=== PATIENT | female | born 1960 | race Caucasian/White ===

== ENCOUNTER 2016-10-16 17:21 | Emergency (ER) | payer OTHER ==
[2016-10-16 17:30] VITALS: TEMP 98; BMI 23.0
[2016-10-16] MEDS ORDERED: ASPIRIN 81 MG CHEWABLE TABLETS PO ONE (17:41)
--- NOTE | 2016-10-16 17:41 | PDOC ---
History of Present Illness - General Chief Complaint: Chest Pain Stated Complaint: SENT BY PCP Past History - Past Medical History Allergies/Adverse Reactions: Allergies Allergy/AdvReac Type Severity Reaction Status Date / Time Penicillins Allergy Verified 10/16/16 17:29 Home Medications: Ambulatory Orders Sitagliptin Phos/Metformin HCl [Janumet 50-500 mg Tablet] 1 tab PO BID 06/23/14 Diabetes: Yes - Psycho/Social/Smoking Cessation Hx Anxiety: No Suicidal Ideation: No Smoking Status: Yes Smoking History: Current every day smoker Have you smoked in the past 12 months: Yes Number of Cigarettes Smoked Daily: 10 Information on smoking cessation initiated: No Hx Alcohol Use: No Drug/Substance Use Hx: No Substance Use Type: None *Physical Exam - Vital Signs Last Vital Signs Temp Pulse Resp BP Pulse Ox 98.0 F 92 H 20 122/76 99 10/16/16 17:27 10/16/16 17:27 10/16/16 17:27 10/16/16 17:27 10/16/16 17:27 - Physical Exam General Appearance: Yes: Appropriately Dressed HEENT: positive: Normal Voice Neck: positive: Supple Respiratory/Chest: positive: Lungs Clear Cardiovascular: positive: Regular Rhythm, Regular Rate Gastrointestinal/Abdominal: positive: Soft, Protuberent Musculoskeletal: positive: Normal Inspection Extremity: positive: Normal Inspection, Normal Range of Motion Integumentary: positive: Normal Color, Warm Neurologic: positive: Fully Oriented, Alert, Motor Strength 5/5 ED Treatment Course - LABORATORY CBC & Chemistry Diagram: 10/16/16 18:25 10/16/16 18:25 - ADDITIONAL ORDERS Additional order review: Laboratory Results 10/16/16 10/16/16 18:25 18:25 INR 1.00 Sodium 140 Potassium 4.1 Chloride 106 Carbon Dioxide 23 Anion Gap 11 BUN 16 Creatinine 0.8 D Creat Clearance w eGFR > 60 Random Glucose 121 H Calcium 9.2 Magnesium 2.0 Total Bilirubin 0.2 D AST 14 L ALT 17 Alkaline Phosphatase 73 D Creatine Kinase 86 Troponin I < 0.02 B-Natriuretic Peptide 45.18 Total Protein 7.1 Albumin 4.1 10/16/16 18:25 RBC 4.31 MCV 94.0 MCHC 33.1 RDW 14.1 MPV 10.6 Neutrophils % 61.9 Lymphocytes % 30.3 Monocytes % 5.2 Eosinophils % 1.4 Basophils % 1.2 - RADIOLOGY Radiology Studies Ordered: Category Date Time Status CHEST X-RAY PORTABLE* [RAD] Stat Radiology 10/16/16 17:42 Taken Medical Decision Making - Medical Decision Making 10/16/16 20:01 56-year-old female had been taking CHANTRIX to stop Smoking and had palpitations last week . Her palpitaions stopped as soon as she stopped my medication but for the past few days she had some mild chest tightness She stopped taking the medication about one week ago but has a residual chest tightness. It is because of this chest tightness she came to the emergency department. EKG was normal sinus rhythm with a left atrial enlargement. Compared today's EKG with that of 12/25/2012, and there were no changes -negative cardiac enzymes labs reviewed cxr napd imp- atypical chest pain -follow up w PCP Enzyme was negative *DC/Admit/Observation/Transfer Diagnosis at time of Disposition: Atypical chest pain - Discharge Dispostion Disposition: HOME Condition at time of disposition: Stable - Referrals Referrals: Kendell Garcia MD [Primary Care Provider] - - Patient Instructions Printed Discharge Instructions: DI for Atypical Chest Pain Additional Instructions: please followup with your regular physician
[2016-10-16] MEDS ORDERED: ASPIRIN 81 MG CHEWABLE TABLETS ONE (17:55)
[2016-10-16 18:42] LABS: BASOPHIL 1.2 % (0-2.0); EOSINOPHIL 1.4 % (0-4.5); MCH 31.1 pg (25.7-33.7); MCHC 33.1 g/dl (32.0-36.0); MEAN PLT VOLUME 10.6 fl (7.5-11.1); NEUTROPHILS 61.9 % (42.8-82.8); PLATELET COUNT 213 K/MM3 (134-434); RDW 14.1 % (11.6-15.6); WHITE BLOOD COUNT 10.9 K/mm3 (4.0-10.0)
--- NOTE | 2016-10-16 19:00 | PDOC ---
History of Present Illness - General Chief Complaint: Chest Pain Stated Complaint: SENT BY PCP Time Seen by Provider: 10/16/16 17:46 History Source: Patient Exam Limitations: No Limitations - History of Present Illness Initial Comments: 10/16/16 18:59 56F with pmh of DM2 on Janumet (FS: 115 2 days ago) present after starting Varenidine treatment 2 weeks ago associated with episodes of palpitations 1 week later after which she stopped taking the drug. Palpitations disappeared but she still complains of some chest tightness. EKG, TYrops negaytive. Just waitng on chemistry to d/c Patient signed out to Dr. Roney Corea. 10/16/16 19:11 Past History - Past Medical History Allergies/Adverse Reactions: Allergies Allergy/AdvReac Type Severity Reaction Status Date / Time Penicillins Allergy Verified 10/16/16 17:29 Home Medications: Ambulatory Orders Sitagliptin Phos/Metformin HCl [Janumet 50-500 mg Tablet] 1 tab PO BID 06/23/14 Diabetes: Yes - Psycho/Social/Smoking Cessation Hx Anxiety: No Suicidal Ideation: No Smoking Status: Yes Smoking History: Current every day smoker Have you smoked in the past 12 months: Yes Number of Cigarettes Smoked Daily: 10 Information on smoking cessation initiated: No Hx Alcohol Use: No Drug/Substance Use Hx: No Substance Use Type: None Review of Systems - Review of Systems Constitutional: No: Symptoms Reported HEENTM: No: Symptoms Reported Respiratory: No: Symptoms reported Cardiac (ROS): Yes: See HPI ABD/GI: No: Symptoms Reported : No: Symptoms Reported Musculoskeletal: No: Symptoms Reported Integumentary: No: Symptoms Reported Neurological: No: Symptoms reported *Physical Exam - Vital Signs Last Vital Signs Temp Pulse Resp BP Pulse Ox 98.0 F 92 H 20 122/76 99 10/16/16 17:27 10/16/16 17:27 10/16/16 17:27 10/16/16 17:27 10/16/16 17:27 - Physical Exam General Appearance: Yes: Nourished, Appropriately Dressed. No: Apparent Distress HEENT: positive: EOMI, ARISTIDES Neck: positive: Trachea midline, Normal Thyroid. negative: Tender Respiratory/Chest: positive: Lungs Clear, Normal Breath Sounds. negative: Chest Tender, Respiratory Distress Cardiovascular: positive: Regular Rhythm, Regular Rate, S1, S2 Gastrointestinal/Abdominal: positive: Normal Bowel Sounds, Flat, Soft. 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
[2016-10-16 19:06] LABS: ALBUMIN 4.1 g/dl (3.4-5.0); ANION GAP 11 (8-16); BILIRUBIN,TOTAL 0.2 mg/dL (0.2-1.0); CALCIUM 9.2 mg/dL (8.5-10.1); CO2 23 mmol/L (21-32); CREATININE 0.8 mg/dL (0.55-1.02); GLUCOSE,RANDOM 121 mg/dL (74-106); SGOT/AST 14 U/L (15-37); SGPT/ALT 17 U/L (12-78); TOT PROT 7.1 g/dl (6.4-8.2)
[2016-10-16 19:09] LABS: ALK PHOS 73 U/L (45-117); CPK 86 IU/L (26-192); TROPONIN I < 0.02 ng/ml (0.00-0.05)
--- NOTE | 2016-10-16 20:04 | PDOC ---
*Physical Exam - Vital Signs Last Vital Signs Temp Pulse Resp BP Pulse Ox 98.0 F 92 H 20 122/76 99 10/16/16 17:27 10/16/16 17:27 10/16/16 17:27 10/16/16 17:27 10/16/16 17:27 - Physical Exam Comments: 10/16/16 20:02 GENERAL: Awake, alert, and fully oriented, in no acute distress HEAD: No signs of trauma, normocephalic, atraumatic EYES: PEOMI, sclera anicteric, conjunctiva clear ENT: Auricles normal inspection, hearing grossly normal, nares patent, Moist mucosa LUNGS: No distress, speaks full sentences, clear to auscultation bilaterally HEART: Regular rate and rhythm, normal S1 and S2, no murmurs, rubs or gallops, peripheral pulses normal and equal bilaterally. ABDOMEN: Soft, nontender, normoactive bowel sounds. No guarding, no rebound. No masses EXTREMITIES: Normal inspection, Normal range of motion, no edema. No clubbing or cyanosis. NEUROLOGICAL: Cranial nerves II through XII grossly intact. Normal speech, no focal sensorimotor deficits SKIN: Warm, Dry, normal turgor, no rashes or lesions noted. ED Treatment Course - LABORATORY CBC & Chemistry Diagram: 10/16/16 18:25 10/16/16 18:25 - ADDITIONAL ORDERS Additional order review: Laboratory Results 10/16/16 10/16/16 18:25 18:25 INR 1.00 Sodium 140 Potassium 4.1 Chloride 106 Carbon Dioxide 23 Anion Gap 11 BUN 16 Creatinine 0.8 D Creat Clearance w eGFR > 60 Random Glucose 121 H Calcium 9.2 Magnesium 2.0 Total Bilirubin 0.2 D AST 14 L ALT 17 Alkaline Phosphatase 73 D Creatine Kinase 86 Troponin I < 0.02 B-Natriuretic Peptide 45.18 Total Protein 7.1 Albumin 4.1 10/16/16 18:25 RBC 4.31 MCV 94.0 MCHC 33.1 RDW 14.1 MPV 10.6 Neutrophils % 61.9 Lymphocytes % 30.3 Monocytes % 5.2 Eosinophils % 1.4 Basophils % 1.2 Medical Decision Making - Medical Decision Making 10/16/16 20:[address] Elizabeth. Vital signs normal and stable. Chemistry normal. HEART score of 1. Directed patient to arrange follow up with PCP Dr Garcia early this week. *DC/Admit/Observation/Transfer Diagnosis at time of Disposition: Atypical chest pain - Discharge Dispostion Disposition: HOME Condition at time of disposition: Good Admit: No - Referrals Referrals: Kendell Garcia MD [Primary Care Provider] - - Patient Instructions Printed Discharge Instructions: DI for Atypical Chest Pain - Post Discharge Activity - Attestations Physician Attestion: I, Dr. Roney Corea, attest that this document has been prepared under my direction and personally reviewed by me in its entirety. I further attest, that it accurately reflects all work, treatment, procedures and medical decision -making performed by me.
[2016-10-16 20:54] VITALS: BP 123/69; PULSE 78
--- NOTE | 2016-10-17 12:15 | EKG ---
Test Reason : Blood Pressure : / mmHG Vent. Rate : 095 BPM Atrial Rate : 095 BPM P-R Int : 152 ms QRS Dur : 078 ms QT Int : 372 ms P-R-T Axes : 065 043 058 degrees QTc Int : 467 ms NORMAL SINUS RHYTHM POSSIBLE LEFT ATRIAL ENLARGEMENT LOW VOLTAGE QRS BORDERLINE ECG WHEN COMPARED WITH ECG OF 25-DEC-2012 17:01, NO SIGNIFICANT CHANGE WAS FOUND Confirmed by ALLY PEREIRA MD ([id number]) on 10/17/2016 12:15:03 PM Referred By: Confirmed By:ALLY PEREIRA MD
== END 2016-10-16 20:40 | disposition home or self-care (01) ==
LOC: JER 17:21
DX: R07.89 Other chest pain (principal); E11.9 Type 2 diabetes mellitus without complications; Z79.84 Long term (current) use of oral hypoglycemic drugs
CPT/HCPCS: 36415; 71010-TC; 80053; 83735; 83880; 84484; 85025; 85610; 93005; 93010; 99283-25

== ENCOUNTER 2017-04-18 06:51 | Emergency (ER) | payer OTHER ==
[2017-04-18 07:13] VITALS: BP 110/73; PULSE 84; TEMP 97.7; BMI 22.4
[2017-04-18] MEDS ORDERED: METOCLOPRAMIDE HCL INJECTION 10 MG/2 ML VIAL IVPUSH ONE (08:04)
[2017-04-18] MEDS ORDERED: SODIUM CHLORIDE 0.9% 500 ML INFUS.BAG IV ONE (08:04)
[2017-04-18] MEDS ORDERED: ACETAMINOPHEN 500 MG TABLET (FP) PO ONE (08:05)
[2017-04-18] MEDS ORDERED: ACETAMINOPHEN 325 MG TABLET (FP) ONE (08:17)
[2017-04-18] MEDS ORDERED: METOCLOPRAMIDE HCL INJECTION 10 MG/2 ML VIAL ONE (08:17)
[2017-04-18 08:53] LABS: BASO % 0.2 % (0-2.0); EOS % 1.5 % (0-4.5); HEMATOCRIT 41.6 % (32.4-45.2); HEMOGLOBIN 13.3 GM/dL (10.7-15.3); LYMPH % 5.2 % (8-40); MCH 30.4 pg (25.7-33.7); MEAN CELL VOLUME 94.8 fl (80-96); MEAN PLT VOLUME 9.7 fl (7.5-11.1); MONO % 3.8 % (3.8-10.2); NEUT % 89.3 % (42.8-82.8); PLATELET COUNT 202 K/MM3 (134-434); RBC 4.39 M/mm3 (3.60-5.2); RDW 13.8 % (11.6-15.6); WHITE BLOOD COUNT 16.5 K/mm3 (4.0-10.0)
--- NOTE | 2017-04-18 08:54 | PDOC ---
History of Present Illness - General History Source: Patient Exam Limitations: No Limitations - History of Present Illness Initial Comments: 04/18/17 10:06 The patient is a 56 year old female with a significant PMH of non-insulin dependent diabetes and hyperlipidemia who presents to the emergency department with flu-like symptoms including 2 days of sore throat and 1 day of headache, body aches, mild non productive cough and nausea. The patient also notes having feeling shortness of breath secondary to her nasal congestion over the past 2 days. She reports her grandson who lives with her has been sick with bronchitis recently. She reports receiving the flu shot this year. She denies any recent travel. The patient denies chest pain and dizziness. Denies fever, chills, vomit, diarrhea and constipation. Denies dysuria, frequency, urgency and hematuria. Allergies: Penicillins Past surgical history: None reported. Social history: Current everyday smoker (5-10 cigs/day). No reported alcohol or drug use. PCP: Dr. Reese <Jacques Sam - Last Filed: 04/18/17 10:07> <Sylwia Isaac - Last Filed: 04/18/17 10:53> - General Chief Complaint: Headache Stated Complaint: HEADACHE Time Seen by Provider: 04/18/17 07:22 Past History <Jacques Sam - Last Filed: 04/18/17 10:07> - Past Medical History COPD: No DVT: No Diabetes: Yes (NIDM) Hypercholesterolemia: Yes - Immunization History Immunization Up to Date: Yes - Suicide/Smoking/Psychosocial Hx Smoking Status: Yes Smoking History: Current every day smoker Have you smoked in the past 12 months: Yes Number of Cigarettes Smoked Daily: 10 Information on smoking cessation initiated: No Hx Alcohol Use: No Drug/Substance Use Hx: No Substance Use Type: None <Sylwia Isaac - Last Filed: 04/18/17 10:53> - Past Medical History Allergies/Adverse Reactions: Allergies Allergy/AdvReac Type Severity Reaction Status Date / Time Penicillins Allergy Verified 04/18/17 07:09 Home Medications: Ambulatory Orders Sitagliptin Phos/Metformin HCl [Janumet 50-500 mg Tablet] 1 tab PO BID 06/23/14 Dapagliflozin Propanediol [Farxiga] 1 tab PO DAILY 03/10/17 Multivitamin [Daily Multiple Vitamin] 1 tab PO DAILY 03/10/17 Rosuvastatin Calcium [Crestor] 1 tab PO DAILY 03/10/17 Review of Systems - Review of Systems Able to Perform ROS?: Yes Comments:: 04/18/17 10:06 GENERAL/CONSTITUTIONAL: (+) Body aches. No fever or chills. No weakness. HEAD, EYES, EARS, NOSE AND THROAT: (+) Sore throat. No change in vision. No ear pain or discharge GASTROINTESTINAL: (+) Nausea. No vomiting, diarrhea or constipation. GENITOURINARY: No dysuria, frequency, or change in urination. CARDIOVASCULAR: No chest pain or shortness of breath. RESPIRATORY: No cough, wheezing, or hemoptysis. MUSCULOSKELETAL: No joint pain. No neck or back pain. SKIN: No rash NEUROLOGIC: (+) Headache. No vertigo, loss of consciousness, or change in strength/sensation. ENDOCRINE: No increased thirst. No abnormal weight change. HEMATOLOGIC/LYMPHATIC: No anemia, easy bleeding, or history of blood clots. ALLERGIC/IMMUNOLOGIC: No hives or skin allergy. <Jacques Sam - Last Filed: 04/18/17 10:07> *Physical Exam - Vital Signs Last Vital Signs Temp Pulse Resp BP Pulse Ox 97.7 F 84 18 110/73 98 04/18/17 07:10 04/18/17 07:10 04/18/17 07:10 04/18/17 07:10 04/18/17 07:10 - Physical Exam Comments: 04/18/17 10:06 GENERAL: Awake, alert, and fully oriented, in no acute distress HEAD: No signs of trauma EYES: PERRLA, EOMI, sclera anicteric, conjunctiva clear ENT: Auricles normal inspection, hearing grossly normal, nares patent, oropharynx clear without exudates, no erythema, no tonsillar edema. dry MM NECK: Normal ROM, supple, no lymphadenopathy, JVD, or masses LUNGS: Breath sounds equal, clear to auscultation bilaterally. No wheezes, and no crackles HEART: Regular rate and rhythm, normal S1 and S2, no murmurs, rubs or gallops ABDOMEN: Soft, nontender, normoactive bowel sounds. No guarding, no rebound. No masses EXTREMITIES: Normal range of motion, no edema. No clubbing or cyanosis. No cords , erythema, or tenderness BACK: No midline spinal tenderness in cervical/thoracic/lumbar region NEUROLOGICAL: Normal speech, cranial nerves intact, negative pronator drift, 5/ 5 strength in all 4 extremities, normal sensation to light touch in all 4 extremities, normal cerebellar exam, normal gait, normal reflexes and tone SKIN: Warm, Dry, normal turgor, no rashes or lesions noted. <Jacques Sam - Last Filed: 04/18/17 10:07> - Vital Signs Last Vital Signs Temp Pulse Resp BP Pulse Ox 97.7 F 84 18 110/73 98 04/18/17 07:10 04/18/17 07:10 04/18/17 07:10 04/18/17 07:10 04/18/17 07:10 <Sylwia Isaac - Last Filed: 04/18/17 10:53> ED Treatment Course - LABORATORY CBC & Chemistry Diagram: 04/18/17 08:45 04/18/17 08:45 - ADDITIONAL ORDERS Additional order review: Laboratory Results 04/18/17 08:45 Sodium 140 Potassium 4.6 Chloride 108 H Carbon Dioxide 25 Anion Gap 7 L BUN 15 Creatinine 0.7 Creat Clearance w eGFR > 60 Random Glucose 137 H Calcium 8.6 Total Bilirubin 0.6 D AST 19 ALT 22 Alkaline Phosphatase 75 Total Protein 7.1 Albumin 4.1 04/18/17 08:32 Influenza Types A,B Antigen (VIRIDIANA) - Final Nasopharyngeal Swab - Final 04/18/17 08:45 RBC 4.39 MCV 94.8 MCHC 32.0 RDW 13.8 MPV 9.7 Neutrophils % 89.3 H D Lymphocytes % 5.2 L D Monocytes % 3.8 Eosinophils % 1.5 Basophils % 0.2 - Medications Given in the ED: ED Medications Discontinued Medications Generic Name Dose Route Start Last Admin Trade Name Freq PRN Reason Stop Dose Admin Acetaminophen 1,000 mg 04/18/17 08:05 04/18/17 08:31 Tylenol - PO 04/18/17 08:06 1,000 mg ONCE ONE Administration Ketorolac Tromethamine 15 mg 04/18/17 09:54 04/18/17 10:01 Toradol Injection - IVPUSH 04/18/17 09:55 15 mg ONCE ONE Administration Metoclopramide HCl 10 mg 04/18/17 08:04 04/18/17 08:31 Reglan Injection - IVPUSH 04/18/17 08:05 10 mg ONCE ONE Administration Sodium Chloride 1,000 ml 04/18/17 08:04 04/18/17 08:31 Normal Saline - IV 04/18/17 08:05 1,000 ml ONCE ONE Administration <Jacques Sam - Last Filed: 04/18/17 10:07> - LABORATORY CBC & Chemistry Diagram: 04/18/17 08:45 04/18/17 08:45 - RADIOLOGY Radiology Studies Ordered: Category Date Time Status CHEST X-RAY PORTABLE* [RAD] Stat Radiology 04/18/17 08:03 Ordered - Medications Given in the ED: ED Medications Discontinued Medications Generic Name Dose Route Start Last Admin Trade Name Jonh PRN Reason Stop Dose Admin Acetaminophen 1,000 mg 04/18/17 08:05 04/18/17 08:31 Tylenol - PO 04/18/17 08:06 1,000 mg ONCE ONE Administration Metoclopramide HCl 10 mg 04/18/17 08:04 04/18/17 08:31 Reglan Injection - IVPUSH 04/18/17 08:05 10 mg ONCE ONE Administration Sodium Chloride 1,000 ml 04/18/17 08:04 04/18/17 08:31 Normal Saline - IV 04/18/17 08:05 1,000 ml ONCE ONE Administration <Sylwia Isaac - Last Filed: 04/18/17 10:53> Medical Decision Making - Medical Decision Making 04/18/17 10:00 56-year-old female presents with 2 days headache, sore throat, cough, nasal congestion, gradual onset headache and diffuse body aches. Vitals unremarkable. Exam remarkable only for slightly dry mucous membranes. Likely viral syndrome, will obtain basic labs, x-ray to rule out infiltrate, and urinalysis as well as flu swab and reassess. 04/18/17 10:42 Labs remarkable for leukocytosis to 16. Chest x-ray is clear,. Flu swab negative , and urinalysis with unlikely UTI. White count possibly due to viral syndrome. Discussed with patient, and advised her to follow-up with Dr. Reese within 1-2 days and return to the emergency Department if she has any new, worsening or concerning symptoms. She expresses understanding. Vitals remain stable. I discussed the physical exam findings, ancillary test results and final diagnoses with the patient. I answered all of the patient's questions. The patient was satisfied with the care received and felt comfortable with the discharge plan and treatment plan. The patient will call their primary care physician within 24 hours to arrange follow-up and will return to the Emergency Department with any new, persistent or worsening symptoms. <Sylwia Isaac - Last Filed: 04/18/17 10:53> *DC/Admit/Observation/Transfer - Attestations Scribe Attestion: 04/18/17 10:07 Documentation prepared by Jacques Sam, acting as medical supervisor for Sylwia Isaac MD. <Jacques Sam - Last Filed: 04/18/17 10:07> - Discharge Dispostion Admit: No - Attestations Physician Attestion: 04/18/17 10:42 I, Dr. Sylwia Isaac MD, attest that this document has been prepared under my direction and personally reviewed by me in its entirety. I further attest, that it accurately reflects all work, treatment, procedures and medical decision -making performed by me. <Sylwia Isaac - Last Filed: 04/18/17 10:53> Diagnosis at time of Disposition: Viral syndrome - Discharge Dispostion Disposition: HOME Condition at time of disposition: Stable - Referrals Referrals: Demarcus Reese MD [Primary Care Provider] - - Patient Instructions Printed Discharge Instructions: DI for Viral Syndrome Additional Instructions: Follow-up with Dr. Reese within 1-2 days. Drink plenty of fluids and stay hydrated. Take ibuprofen as needed for body aches. Return to the emergency department if you have any new, worsening or concerning symptoms. - Post Discharge Activity Forms/Work/School Notes: Back to Work
[2017-04-18 09:17] LABS: ALBUMIN 4.1 g/dl (3.4-5.0); ANION GAP 7 (8-16); BLOOD UREA NITROGEN 15 mg/dL (7-18); CALCIUM 8.6 mg/dL (8.5-10.1); CHLORIDE 108 mmol/L (98-107); CO2 25 mmol/L (21-32); CREATININE 0.7 mg/dL (0.55-1.02); GLUCOSE,RANDOM 137 mg/dL (74-106); SGPT/ALT 22 U/L (12-78); SODIUM 140 mmol/L (136-145)
[2017-04-18 09:19] LABS: ALK PHOS 75 U/L (45-117); BILIRUBIN,TOTAL 0.6 mg/dL (0.2-1.0); TOT PROT 7.1 g/dl (6.4-8.2)
[2017-04-18 09:41] LABS: POTASSIUM 4.6 mmol/L (3.5-5.1); SGOT/AST 19 U/L (15-37)
[2017-04-18] MEDS ORDERED: KETOROLAC TROMETHAMINE 15 MG/ML VIAL IVPUSH ONE (09:54)
[2017-04-18] MEDS ORDERED: KETOROLAC TROMETHAMINE 15 MG/ML VIAL ONE (09:58)
[2017-04-18 10:11] LABS: URINE APPEARANCE CLEAR; URINE BILIRUBIN NEGATIVE (NEGATIVE); URINE BLOOD NEGATIVE (NEGATIVE); URINE COLOR STRAW; URINE GLUCOSE (UA) 3+ (NEGATIVE); URINE KETONE NEGATIVE (NEGATIVE); URINE NITRITE NEGATIVE (NEGATIVE); URINE PROTEIN NEGATIVE (NEGATIVE); URINE UROBILINOGEN NEGATIVE mg/dL (0.2-1.0)
[2017-04-18 10:16] LABS: URINE LEUK ESTERASE 1+ (NEGATIVE)
[2017-04-18 10:20] LABS: EPI CELLS FEW /HPF (FEW)
== END 2017-04-18 11:04 | disposition home or self-care (01) ==
LOC: JER 06:51
PROC: 3E0333Z Introduction of Anti-inflammatory into Peripheral Vein, Percutaneous Approach (ICD-10-PCS; principal; 2017-04-18)
PROC: 3E033GC Introduction of Other Therapeutic Substance into Peripheral Vein, Percutaneous Approach (ICD-10-PCS; 2017-04-18)
DX: B34.9 Viral infection, unspecified (principal)
CPT/HCPCS: 36415; 71045-TC; 80053; 81003; 81015; 85025; 87086; 87804; 99283-25

== ENCOUNTER 2017-05-04 05:14 | Day surgery (SDC) | payer OTHER ==
[2017-05-02 09:19] VITALS: BMI 22.4
[2017-05-04] MEDS ORDERED: LIDOCAINE HCL 1%, 10 MG/ML (20ML VIAL) ONE (13:39)
[2017-05-04] MEDS ORDERED: HEPARIN NA (PORCINE) 5,000 UNITS/ML 1ML VIAL ONE ×2 (13:39→14:45)
--- NOTE | 2017-05-04 14:06 | HP ---
Admitting History and Physical - Admission Chief Complaint: Right lower ext claudication Limitations to Obtaining History: No Limitations - Past Medical History Cardiovascular: Yes: Hyperlipdemia Pulmonary: Yes: Other (Smoker) ...LMP Comment: 2013 Endocrine: Yes: Diabetes Mellitus - Smoking History Smoking history: Current every day smoker Have you smoked in the past 12 months: Yes Aproximately how many cigarettes per day: 5 - Alcohol/Substance Use Hx Alcohol Use: No Home Medications - Allergies Allergies/Adverse Reactions: Allergies Allergy/AdvReac Type Severity Reaction Status Date / Time Penicillins Allergy Severe Hives Verified 05/02/17 09:07 - Home Medications Home Medications: Ambulatory Orders Sitagliptin Phos/Metformin HCl [Janumet 50-500 mg Tablet] 1 tab PO BID 06/23/14 Dapagliflozin Propanediol [Farxiga] 1 tab PO DAILY 03/10/17 Multivitamin [Daily Multiple Vitamin] 1 tab PO DAILY 03/10/17 Rosuvastatin Calcium [Crestor] 1 tab PO DAILY 03/10/17 Aspirin [Ecotrin] 81 mg PO DAILY 05/02/17 Zolpidem Tartrate [Ambien] 5 mg PO HS PRN 05/02/17 Review of Systems - Review of Systems Constitutional: reports: No Symptoms Eyes: reports: No Symptoms HENT: reports: No Symptoms Neck: reports: No Symptoms Cardiovascular: reports: No Symptoms Respiratory: reports: No Symptoms Gastrointestinal: reports: No Symptoms Genitourinary: reports: No Symptoms Breasts: reports: No Symptoms Reported Musculoskeletal: reports: No Symptoms Integumentary: reports: No Symptoms Neurological: reports: No Symptoms Endocrine: reports: No Symptoms Hematology/Lymphatic: reports: No Symptoms Psychiatric: reports: No Symptoms Physical Examination Vital Signs: Vital Signs Temperature 97.5 F L 05/04/17 12:39 Pulse Rate 86 05/04/17 12:39 Respiratory Rate 16 05/04/17 12:39 Blood Pressure 121/69 05/04/17 12:39 O2 Sat by Pulse Oximetry (%) 100 05/04/17 12:39 Constitutional: Yes: Well Nourished, No Distress, Calm Eyes: Yes: WNL, Conjunctiva Clear, EOM Intact HENT: Yes: WNL, Atraumatic, Normocephalic Neck: Yes: WNL, Supple, Trachea Midline Cardiovascular: Yes: WNL, Regular Rate and Rhythm Respiratory: Yes: WNL, Regular, CTA Bilaterally Gastrointestinal: Yes: WNL, Normal Bowel Sounds Musculoskeletal: Yes: WNL Extremities: Yes: WNL Edema: No Integumentary: Yes: WNL Neurological: Yes: WNL, Alert, Oriented ...Motor Strength: WNL Psychiatric: Yes: WNL Problem List - Problems (1) Claudication of both lower extremities Code(s): I73.9 - PERIPHERAL VASCULAR DISEASE, UNSPECIFIED Assessment/Plan RLE claudication 1. For angiogram today
[2017-05-04] MEDS ORDERED: MIDAZOLAM HCL 2 MG/2 ML SINGLE DOSE VIAL ONE ×2 (14:19)
[2017-05-04] MEDS ORDERED: ceFAZolin SODIUM 1 GM VIAL IVPB ONE (14:25)
[2017-05-04] MEDS ORDERED: PROPOFOL 20 ML ONE (14:35)
[2017-05-04] MEDS ORDERED: LIDOCAINE HCL 1%, 10 MG/ML (20ML VIAL) PNB ONE (14:40)
--- NOTE | 2017-05-04 15:29 | OP ---
Operative Note - Note: Operative Date: 05/04/17 Pre-Operative Diagnosis: Right lower ext claudication Operation: Aortogram, RLE angiogram, SFA DCB angioplasty Post-Operative Diagnosis: Same as Pre-op Surgeon: Mat Omer Anesthesia: Fractional Estimated Blood Loss (mls): 50 Operative Report Dictated: Yes
[2017-05-04] MEDS ORDERED: CLOPIDOGREL BISULFATE 75 MG TABLET (FP) PO ONE (15:45)
[2017-05-04] MEDS ORDERED: ONDANSETRON 4 MG/2 ML VIAL IVPUSH PRN (16:05)
[2017-05-04] MEDS ORDERED: oxyCODONE HCL 5 MG TABLET PO PRN (16:05)
[2017-05-04] MEDS ORDERED: LACTATED RINGERS SOLUTION 1,000 ML IV SCH (16:15)
[2017-05-04] MEDS ORDERED: CLOPIDOGREL BISULFATE 75 MG TABLET (FP) ONE (16:25)
[2017-05-04 16:28] VITALS: TEMP 98.6
[2017-05-04 18:16] VITALS: BP 141/72; PULSE 75
--- NOTE | 2017-05-05 10:48 | OP ---
DATE OF OPERATION: 05/04/2017 PREOPERATIVE DIAGNOSIS: Right lower extremity claudication. POSTOPERATIVE DIAGNOSIS: Right lower extremity claudication. PROCEDURE: Aortogram, right lower extremity angiogram, right superficial femoral artery atherectomy with superficial femoral artery drug-coated balloon angioplasty. SURGEON: Mat Munroe MD ANESTHESIA: Fractional. BLOOD LOSS: 50 mL. INDICATIONS: Rebecca Gustafson is a 56-year-old female who complains of less than 2-block claudication, and she came into our office with those symptoms. Preoperatively, under ultrasound, AIMEE and PVR were performed, showing that she has a distal SFA stenosis/occlusion, and she needs angiogram. Patient had medical clearance performed by Dr. Reese and came into ambulatory surgery. Patient was consented for the procedure understanding all risks, benefits, and alternatives and taken to the operating room. PROCEDURE IN DETAIL: Once in the operating room, she was laid down on the operating table in the supine manner, and the area of the left and right groin was prepped and draped in the sterile surgical manner. We then went injected 10 mL of lidocaine 1% in the left groin, and using our micropuncture needle, we punctured the left common femoral artery. A micropuncture wire inserted. Micropuncture sheath was inserted, and a traditional 5-Angolan sheath was inserted. We then placed a 0.035 floppy guidewire up into the aorta followed by an Omni Flush catheter. We then shot an angiogram by hand injection showing that the aorta and the iliac arteries were without any disease, yet narrow. We then went ahead and placed a 0.035 floppy guidewire up and over to the right common femoral artery and our Omni Flush catheter followed. We then went ahead and shot an angiogram of the right lower extremity showing that the common femoral artery, the profunda, and the proximal SFA were patent. The mid to distal SFA had multiple areas of disease about 80% to 90%, and the distal SFA and the adductor canal was occluded for about 5 cm. Popliteal artery was patent, and patient had 2-vessel runoff into the foot. At this point, we placed a 0.035 stiff guidewire into the SFA, removed our Omni Flush catheter, and placed our 6 x 45 crossover sheath, 5000 units of IV heparin were administered to the patient. We then went ahead and used a Quick-Cross catheter, and we selectively crossed through all our lesions and placed a wire into the anterior tibial artery. We then exchanged the wire for a FiberWire. We then went ahead and performed a CSI Orbital Atherectomy in the area with 2 passes on low and medium. We then went ahead and used a 5 x 150 Lutonix drug-coated balloon and performed angioplasty of the area. The balloon was kept up for 3 minutes, so, that the drug, paclitaxel, could be disseminated into the arterial wall. Once completed, we shot an angiogram showing that the SFA was now patent, there were no areas of dissection, and there was good brisk flow into the foot. At this point, we decided that was needed, we brought our sheath up and over, and StarClose device was successfully deployed in the left common femoral artery. Pressure was held for 5 minutes. After this, there was no more bleeding. The area was wet and dried, and Dermabond was placed. The patient tolerated the procedure with no complications. Patient transferred to PACU in stable condition. We explained to the patient postoperatively that she has to keep her diabetes in control, but one of the biggest things she has to do is stop smoking, because if she continues to smoke, all of the disease will come back, and her arteries will close. She said that she would try to cut down her smoking. MAT MUNROE DO [id number]
== END 2017-05-04 18:00 | disposition home or self-care (01) ==
LOC: JASU-SURG 05:14
PROVIDERS: ATTEND Surgery Vascular Surgery
PROC: 047K3Z1 Dilation of Right Femoral Artery using Drug-Coated Balloon, Percutaneous Approach (ICD-10-PCS; principal; 2017-05-04 12:15)
DX: I70.211 Atherosclerosis of native arteries of extremities with intermittent claudication, right leg (principal); E11.9 Type 2 diabetes mellitus without complications; Z72.0 Tobacco use; I10 Essential (primary) hypertension
CPT/HCPCS: 37224; C2623; 82962; 94760; J1644

== ENCOUNTER 2017-05-04 22:31 | Emergency (ER) | payer OTHER ==
[2017-05-04 22:53] VITALS: BP 112/68; PULSE 86; TEMP 98; BMI 23.2
--- NOTE | 2017-05-05 00:08 | PDOC ---
History of Present Illness - General Chief Complaint: Pain Stated Complaint: POST OP PAIN/BLEEDING Time Seen by Provider: 05/04/17 23:55 History Source: Patient Exam Limitations: No Limitations - History of Present Illness Initial Comments: 05/05/17 01:07 56F with pmf of dm2 and claudication s/p angioplasty yesterday by Dr. Omer. Patient came to the ED report dried blood around the site of the angioplasty which was closed with Dermabond. Denies pain, nausea, vomiting, fever. She states that she has to climb stairs to get to her apartment and the bleed may have happened there. 05/05/17 01:11 Past History - Past Medical History Allergies/Adverse Reactions: Allergies Allergy/AdvReac Type Severity Reaction Status Date / Time Penicillins Allergy Severe Hives Verified 05/02/17 09:07 Home Medications: Ambulatory Orders Sitagliptin Phos/Metformin HCl [Janumet 50-500 mg Tablet] 1 tab PO BID 06/23/14 Dapagliflozin Propanediol [Farxiga] 1 tab PO DAILY 03/10/17 Multivitamin [Daily Multiple Vitamin] 1 tab PO DAILY 03/10/17 Rosuvastatin Calcium [Crestor] 1 tab PO DAILY 03/10/17 Aspirin [Ecotrin] 81 mg PO DAILY 05/02/17 Zolpidem Tartrate [Ambien] 5 mg PO HS PRN 05/02/17 Clopidogrel Bisulfate [Plavix] 75 mg PO DAILY #30 tablet 05/04/17 Anemia: No Asthma: No Cancer: No Cardiac Disorders: No CVA: No COPD: No CHF: No DVT: No Dementia: No Diabetes: Yes (NIDM) GI Disorders: No Disorders: No HTN: No Hypercholesterolemia: Yes Liver Disease: No Seizures: No Thyroid Disease: No - Surgical History Abdominal Surgery: No Appendectomy: No Cardiac Surgery: No Cholecystectomy: No Lung Surgery: No Orthopedic Surgery: No - Immunization History Immunization Up to Date: Yes - Suicide/Smoking/Psychosocial Hx Smoking Status: Yes Smoking History: Current every day smoker Have you smoked in the past 12 months: Yes Number of Cigarettes Smoked Daily: 5 Information on smoking cessation initiated: No 'Breaking Loose' booklet given: 05/02/17 Hx Alcohol Use: No Drug/Substance Use Hx: No Substance Use Type: None Hx Substance Use Treatment: No Review of Systems - Review of Systems Able to Perform ROS?: Yes Is the patient limited Czech proficient: No Constitutional: No: Symptoms Reported HEENTM: No: Symptoms Reported Respiratory: No: Symptoms reported Cardiac (ROS): No: Symptoms Reported ABD/GI: No: Symptoms Reported : No: Symptoms Reported Musculoskeletal: No: Symptoms Reported Integumentary: Yes: See HPI Neurological: No: Symptoms reported All Other Systems: Reviewed and Negative *Physical Exam - Vital Signs Last Vital Signs Temp Pulse Resp BP Pulse Ox 98.0 F 86 16 112/68 100 05/04/17 22:51 05/04/17 22:51 05/04/17 22:51 05/04/17 22:51 05/04/17 22:51 - Physical Exam General Appearance: Yes: Nourished, Appropriately Dressed HEENT: positive: EOMI, ARISTIDES Neck: negative: Tender Respiratory/Chest: positive: Lungs Clear, Normal Breath Sounds. negative: Chest Tender, Respiratory Distress Cardiovascular: positive: Regular Rhythm, Regular Rate, S1, S2 Gastrointestinal/Abdominal: positive: Normal Bowel Sounds, Flat, Soft. negative : Tender Musculoskeletal: positive: Normal Inspection Extremity: positive: Normal Capillary Refill Integumentary: positive: Normal Color, Dry, Warm, Other (surgery site at right groin area intact with some dried blood, no erythema, purulence, induration. Dermabond still holding. ) Neurologic: positive: Fully Oriented, Alert, Normal Mood/Affect, Normal Response Medical Decision Making - Medical Decision Making 05/05/17 01:15 Site not appearing to be actively bleeding, no sign of hematoma or pooling of any kind. Patient discharged with follow up with Dr. Omer *DC/Admit/Observation/Transfer Diagnosis at time of Disposition: Visit for wound check - Discharge Dispostion Disposition: HOME Condition at time of disposition: Good Admit: No - Referrals Referrals: Kendell Garcia MD [Primary Care Provider] - Mat Omer MD [Staff Physician] - - Patient Instructions Printed Discharge Instructions: How to Care for a Surgical Wound Additional Instructions: Follow up with Dr. Omer within the next 2-3 days. Come back to the Er for any new, worsening or concerning symptoms. - Post Discharge Activity
--- NOTE | 2017-05-05 01:06 | PDOC ---
Attending Attestation - Resident Resident Name: ElizabethKenn - ED Attending Attestation I have performed the following: I have examined & evaluated the patient, The case was reviewed & discussed with the resident, I agree w/resident's findings & plan, Exceptions are as noted - Medical Decision Making 05/05/17 01:10 Pt treated and released <Ace Jerez - Last Filed: 05/05/17 01:09> - HPI HPI: 05/05/17 01:15 The patient is a 55 year old female with a significant PMH of type 2 diabetes who presents to the emergency department with RLE bleeding s/p angioplasty. The patient reports having an angioplasty done yesterday at the RLE along the right groin, and noticed some bleeding from the site last night The patient denies any other complaints. Allergies: Penicillins PCP: Dr. Garcia <Jacques Sam - Last Filed: 05/05/17 01:15>
--- NOTE | 2017-05-05 10:48 | OP ---
DATE OF OPERATION: 05/04/2017 PREOPERATIVE DIAGNOSIS: Right lower extremity claudication. POSTOPERATIVE DIAGNOSIS: Right lower extremity claudication. PROCEDURE: Aortogram, right lower extremity angiogram, right superficial femoral artery atherectomy with superficial femoral artery drug-coated balloon angioplasty. SURGEON: Mat Munroe MD ANESTHESIA: Fractional. BLOOD LOSS: 50 mL. INDICATIONS: Rebecca Gustafson is a 56-year-old female who complains of less than 2-block claudication, and she came into our office with those symptoms. Preoperatively, under ultrasound, AIMEE and PVR were performed, showing that she has a distal SFA stenosis/occlusion, and she needs angiogram. Patient had medical clearance performed by Dr. Reese and came into ambulatory surgery. Patient was consented for the procedure understanding all risks, benefits, and alternatives and taken to the operating room. PROCEDURE IN DETAIL: Once in the operating room, she was laid down on the operating table in the supine manner, and the area of the left and right groin was prepped and draped in the sterile surgical manner. We then went injected 10 mL of lidocaine 1% in the left groin, and using our micropuncture needle, we punctured the left common femoral artery. A micropuncture wire inserted. Micropuncture sheath was inserted, and a traditional 5-Chinese sheath was inserted. We then placed a 0.035 floppy guidewire up into the aorta followed by an Omni Flush catheter. We then shot an angiogram by hand injection showing that the aorta and the iliac arteries were without any disease, yet narrow. We then went ahead and placed a 0.035 floppy guidewire up and over to the right common femoral artery and our Omni Flush catheter followed. We then went ahead and shot an angiogram of the right lower extremity showing that the common femoral artery, the profunda, and the proximal SFA were patent. The mid to distal SFA had multiple areas of disease about 80% to 90%, and the distal SFA and the adductor canal was occluded for about 5 cm. Popliteal artery was patent, and patient had 2-vessel runoff into the foot. At this point, we placed a 0.035 stiff guidewire into the SFA, removed our Omni Flush catheter, and placed our 6 x 45 crossover sheath, 5000 units of IV heparin were administered to the patient. We then went ahead and used a Quick-Cross catheter, and we selectively crossed through all our lesions and placed a wire into the anterior tibial artery. We then exchanged the wire for a FiberWire. We then went ahead and performed a CSI Orbital Atherectomy in the area with 2 passes on low and medium. We then went ahead and used a 5 x 150 Lutonix drug-coated balloon and performed angioplasty of the area. The balloon was kept up for 3 minutes, so, that the drug, paclitaxel, could be disseminated into the arterial wall. Once completed, we shot an angiogram showing that the SFA was now patent, there were no areas of dissection, and there was good brisk flow into the foot. At this point, we decided that was needed, we brought our sheath up and over, and StarClose device was successfully deployed in the left common femoral artery. Pressure was held for 5 minutes. After this, there was no more bleeding. The area was wet and dried, and Dermabond was placed. The patient tolerated the procedure with no complications. Patient transferred to PACU in stable condition. We explained to the patient postoperatively that she has to keep her diabetes in control, but one of the biggest things she has to do is stop smoking, because if she continues to smoke, all of the disease will come back, and her arteries will close. She said that she would try to cut down her smoking. MAT MUNROE DO [id number]
== END 2017-05-05 01:26 | disposition home or self-care (01) ==
LOC: JER 22:31
DX: I97.618 Postprocedural hemorrhage of a circulatory system organ or structure following other circulatory system procedure (principal); E11.9 Type 2 diabetes mellitus without complications; Z79.84 Long term (current) use of oral hypoglycemic drugs; E78.00 Pure hypercholesterolemia, unspecified; F17.210 Nicotine dependence, cigarettes, uncomplicated; Z79.01 Long term (current) use of anticoagulants; Z79.82 Long term (current) use of aspirin
CPT/HCPCS: 99282-25

== ENCOUNTER 2018-03-21 20:09 | Emergency (ER) | payer OTHER ==
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
[2018-03-21 20:50] VITALS: BP 152/77; PULSE 105; TEMP 98; BMI 28.1
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
[2018-03-22] MEDS ORDERED: KETOROLAC TROMETHAMINE 30 MG/1 ML VIAL IVPUSH ONE (00:12)
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
[2018-03-22] MEDS ORDERED: KETOROLAC TROMETHAMINE 30 MG/1 ML VIAL ONE (00:33)
[2018-03-22] MEDS ORDERED: METHOCARBAMOL 500 MG TABLET PO ONE (00:56)
[2018-03-22 01:14] LABS: BASO % 0.7 % (0-2.0); EOS % 1.1 % (0-4.5); HEMATOCRIT 36.5 % (32.4-45.2); HEMOGLOBIN 12.7 GM/dL (10.7-15.3); LYMPH % 30.5 % (8-40); MCH 32.5 pg (25.7-33.7); MCHC 34.8 g/dl (32.0-36.0); MEAN CELL VOLUME 93.3 fl (80-96); MEAN PLT VOLUME 10.5 fl (7.5-11.1); MONO % 5.8 % (3.8-10.2); NEUT % 61.9 % (42.8-82.8); PLATELET COUNT 227 K/MM3 (134-434); RBC 3.92 M/mm3 (3.60-5.2); RDW 13.4 % (11.6-15.6); WHITE BLOOD COUNT 11.9 K/mm3 (4.0-10.0)
[2018-03-22 01:29] LABS: INR 0.89 (0.83-1.09); PROTHROMBIN TIME (PATIENT) 10.5 SEC (9.7-13.0)
[2018-03-22 01:32] LABS: ACTIVATED PTT 28.4 SECONDS (25.2-36.5)
[2018-03-22 01:41] LABS: ALK PHOS 102 U/L (45-117); ANION GAP 8 MMOL/L (8-16); BILIRUBIN,TOTAL 0.3 mg/dL (0.2-1); BLOOD UREA NITROGEN 18 mg/dL (7-18); CHLORIDE 105 mmol/L (98-107); CO2 24 mmol/L (21-32); CREATININE 0.7 mg/dL (0.55-1.3); GLUCOSE,RANDOM 208 mg/dL (74-106); POTASSIUM 4.1 mmol/L (3.5-5.1); SGOT/AST 14 U/L (15-37); SGPT/ALT 20 U/L (13-61); SODIUM 138 mmol/L (136-145); TOT PROT 7.2 g/dl (6.4-8.2)
[2018-03-22] MEDS ORDERED: METHOCARBAMOL 500 MG TABLET ONE (02:01)
[2018-03-22 02:55] LABS: URINE APPEARANCE CLEAR; URINE BILIRUBIN NEGATIVE (<2.0 mg/dL); URINE COLOR LTYELLOW; URINE GLUCOSE (UA) 3+ (NEGATIVE); URINE KETONE NEGATIVE (NEGATIVE); URINE LEUK ESTERASE TRACE (NEGATIVE); URINE NITRITE NEGATIVE (NEGATIVE); URINE PROTEIN NEGATIVE (NEGATIVE); URINE UROBILINOGEN NEGATIVE mg/dL (0.2-1.0)
[2018-03-22 03:04] LABS: EPI CELLS FEW /HPF (FEW); URINE BACTERIA RARE /hpf (NONE SEEN); URINE MUCUS RARE
== END 2018-03-22 03:37 | disposition home or self-care (01) ==
LOC: JER 20:09 → JERFT 20:09 → JER 03-22 01:09
PROC: 3E0333Z Introduction of Anti-inflammatory into Peripheral Vein, Percutaneous Approach (ICD-10-PCS; principal; 2018-03-21)
DX: M54.2 Cervicalgia (principal); S16.1XXA Strain of muscle, fascia and tendon at neck level, initial encounter; V43.52XA Car driver injured in collision with other type car in traffic accident, initial encounter; Y93.89 Activity, other specified; Y92.410 Unspecified street and highway as the place of occurrence of the external cause; Z87.891 Personal history of nicotine dependence; E11.9 Type 2 diabetes mellitus without complications; E78.00 Pure hypercholesterolemia, unspecified; Z79.01 Long term (current) use of anticoagulants
CPT/HCPCS: 36415; 70450-TC; 72125-TC; 80053; 81003; 81015; 85025; 85610; 85730; 86850; 86900; 86901; 99281-25

== ENCOUNTER 2019-03-12 08:42 | Emergency (ER) | payer OTHER ==
[2019-03-12 08:59] VITALS: BP 111/67; PULSE 92; TEMP 99.5; BMI 23.0
[2019-03-12] MEDS ORDERED: IBUPROFEN 600 MG TABLET (FP) PO ONE ×2 (09:13→09:24)
--- NOTE | 2019-03-12 09:31 | PDOC ---
History of Present Illness - General Chief Complaint: Cold Symptoms Stated Complaint: COLD SYMPTOMS Time Seen by Provider: 03/12/19 09:03 - History of Present Illness Initial Comments: 03/12/19 09:31 CHIEF COMPLAINT: cough HISTORY OF PRESENT ILLNESS: 58 yo F with hx of NIDDM and PAD (on Plavix) [facility] with cough x 3 days. Patient reports persistent cough that wakes her up at night and a subjective fever. She denies any N/V/D. Patient reports that both her son and daughter have had similar symptoms recently "but they are ok." No recent travel or sick contacts. Denies recent surgery or use of hormones. PAST MEDICAL HISTORY: NIDDM, PAD FAMILY HISTORY: Denies SOCIAL HISTORY: Denies tobacco, alcohol, illicit drug use. SURGICAL HISTORY: Denies ALLERGIES: No known drug allergies REVIEW OF SYSTEMS General/Constitutional: Denies fever or chills. Denies weakness, weight change. HEENT: Denies change in vision. Denies ear pain or discharge. Denies sore throat. Cardiovascular: Denies chest pain or shortness of breath. Respiratory:Cough x 3 days. Denies wheezing, or hemoptysis. Gastrointestinal: Denies nausea, vomiting, diarrhea or constipation. Denies rectal bleeding. Genitourinary: Denies dysuria, frequency, or change in urination. Musculoskeletal: Denies joint or muscle swelling or pain. Denies neck or back pain. Skin and breasts: Denies rash or easy bruising. Neurologic: Denies headache, vertigo, loss of consciousness, or loss of sensation. Psychiatric: Denies depression or anxiety. PHYSICAL EXAM General Appearance: Well-appearing, appropriately dressed. No apparent distress , no intoxication. HEENT: EOMI, PERRLA, normal ENT inspection, normal voice, TMs normal, pharynx normal. No conjunctival pallor. No photophobia, scleral icterus. Neck: Supple. Trachea midline. No tenderness, rigidity, carotid bruit, stridor , lymphadenopathy, or thyromegaly. Respiratory/Chest: Lungs CTAB. No shortness of breath, chest tenderness, respiratory distress, accessory muscle use. No crackles, rales, rhonchi, stridor , wheezing, dullness Cardiovascular: RRR. S1, S2. No JVD, murmur, bradycardia, tachycardia. Vascular Pulses: Dorsalis-Pedis (R): 2+, Dorsalis-Pedis (L): 2+ Gastrointestinal/Abdominal: Normal bowel sounds. Abdomen soft, non-distended. No tenderness or rebound tenderness. No organomegaly, pulsatile mass, guarding , hernia, hepatomegaly, splenomegaly. Lymphatic: No adenopathy, tenderness. Musculoskeletal/Extremities: Normal inspection. FROM of all extremities, normal capillary refill. Pelvis Stable. No CVA tenderness. No tenderness to extremities, pedal edema, swelling, erythema or deformity. Integumentary: Appropriate color, dry, warm. 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 Fully oriented, alert. Appropriate mood/affect. Motor strength 5/5. No appreciable EOM palsy, facial droop or sensory deficit. Past History - Past Medical History Allergies/Adverse Reactions: Allergies Allergy/AdvReac Type Severity Reaction Status Date / Time Penicillins Allergy Severe Hives Verified 05/02/17 09:07 Home Medications: Ambulatory Orders Sitagliptin Phos/Metformin HCl [Janumet 50-500 mg Tablet] 1 tab PO BID 06/23/14 Dapagliflozin Propanediol [Farxiga] 1 tab PO DAILY 03/10/17 Multivitamin [Daily Multiple Vitamin] 1 tab PO DAILY 03/10/17 Rosuvastatin Calcium [Crestor] 1 tab PO DAILY 03/10/17 Aspirin [Ecotrin] 81 mg PO DAILY 05/02/17 Zolpidem Tartrate [Ambien] 5 mg PO HS PRN 05/02/17 Clopidogrel Bisulfate [Plavix] 75 mg PO DAILY #30 tablet 05/04/17 Albuterol Sulfate Inhaler - [Ventolin HFA Inhaler -] 1 - 2 inh PO Q4H #1 inhaler 03/12/19 Benzonatate [Tessalon Perle -] 100 mg PO TID #21 capsule 03/12/19 Anemia: No Asthma: No Cancer: No Cardiac Disorders: No CVA: No COPD: No CHF: No DVT: No Dementia: No Diabetes: Yes (NIDM) GI Disorders: No Disorders: No HTN: No Hypercholesterolemia: Yes Liver Disease: No Seizures: No Thyroid Disease: No - Surgical History Abdominal Surgery: No Appendectomy: No Cardiac Surgery: No Cholecystectomy: No Lung Surgery: No Orthopedic Surgery: No - Reproductive History Cervical CA: No Dysfunctional Uterine Bleeding: No Ectopic : No Endometrial CA: No Polycystic Ovaries: No Tubal Ligation: No - Immunization History Immunization Up to Date: Yes - Psycho Social/Smoking Cessation Hx Smoking Status: Yes Smoking History: Current every day smoker Have you smoked in the past 12 months: Yes Number of Cigarettes Smoked Daily: 5 Information on smoking cessation initiated: No 'Breaking Loose' booklet given: 05/02/17 Hx Alcohol Use: No Drug/Substance Use Hx: No Substance Use Type: None Hx Substance Use Treatment: No *Physical Exam - Vital Signs Last Vital Signs Temp Pulse Resp BP Pulse Ox 99.5 F 92 H 16 111/67 97 03/12/19 08:56 03/12/19 08:56 03/12/19 08:56 03/12/19 08:56 03/12/19 08:56 ED Treatment Course - RADIOLOGY Radiology Studies Ordered: Category Date Time Status CHEST PA & LAT [RAD] Stat Radiology 03/12/19 09:13 Ordered - Medications Given in the ED: ED Medications Discontinued Medications Generic Name Dose Route Start Last Admin Trade Name Freq PRN Reason Stop Dose Admin Ibuprofen 600 mg 03/12/19 09:13 03/12/19 09:24 Motrin - PO 03/12/19 09:14 600 mg ONCE ONE Administration Medical Decision Making - Medical Decision Making 03/12/19 09:33 58 yo F with hx of NIDDM and PAD (Plavix) presents to [facility] with cough x 3 days. Negative Well's criteria, patient on Plavix, unlikely PE. Patient denies any CP or SOB, repeatedly stating her main concern is her dry cough that is "really harsh so I'm afraid to cough." -flu -CXR 03/12/19 10:09 CXR wet read negative. flu negative. likely viral URI, will treat symptomatically. Discussed with patient importance of f/u with PCP, patient states she will f/u with her PCP Annabi within the next 3-5 days. Advised patient to take medication as prescribed and follow up with PCP within the next week. Advised patient of signs and symptoms for return to ED. Patient verbalized understanding and agrees to plan. Discharge - Discharge Information Problems reviewed: Yes Clinical Impression/Diagnosis: Viral URI Condition: Stable Disposition: HOME - Admission No - Additional Discharge Information Prescriptions: Albuterol Sulfate Inhaler - [Ventolin HFA Inhaler -] 1 - 2 inh PO Q4H #1 inhaler Benzonatate [Tessalon Perle -] 100 mg PO TID #21 capsule - Follow up/Referral Referrals: Demarcus Reese MD [Primary Care Provider] - - Patient Discharge Instructions Patient Printed Discharge Instructions: DI for Viral Upper Respiratory Infection -- Adult Additional Instructions: Please use medications as prescribed. Follow up with your primary care doctor within the next 3-5 days for continued monitoring and evaluation of your symptoms. If you develop persistent fever, vomiting, diarrhea, chest pain, shortness of breath, or any new or worsening symptoms, please return to the ER. - Post Discharge Activity
== END 2019-03-12 10:40 | disposition home or self-care (01) ==
LOC: JERFT 08:42
DX: J06.9 Acute upper respiratory infection, unspecified (principal); B97.89 Other viral agents as the cause of diseases classified elsewhere; E11.9 Type 2 diabetes mellitus without complications; Z79.84 Long term (current) use of oral hypoglycemic drugs; I73.9 Peripheral vascular disease, unspecified; Z88.0 Allergy status to penicillin
CPT/HCPCS: 71046-TC-FY; 87804; 99281-25

== ENCOUNTER 2019-03-18 17:38 | Emergency (ER) | payer OTHER ==
[2019-03-18 17:47] VITALS: TEMP 98.1; BMI 23.0
--- NOTE | 2019-03-18 17:47 | PDOC ---
Rapid Medical Evaluation Time Seen by Provider: 03/18/19 17:43 Medical Evaluation: Allergies Allergy/AdvReac Type Severity Reaction Status Date / Time Penicillins Allergy Severe Hives Verified 05/02/17 09:07 03/18/19 17:44 CC: SOB, cough, nausea, intermittent tingling to b/l hands x1 week. Seen here PE: Lungs CTAB. Speaking full sentences Orders: EKG Patient will proceed to ER for further evaluation. Discharge Disposition - Diagnosis SOB (shortness of breath) - Referrals Referrals: Kendell Garcia MD [Primary Care Provider] - - Patient Instructions - Post Discharge Activity
--- NOTE | 2019-03-18 18:32 | PDOC ---
History of Present Illness - General Chief Complaint: Shortness of Breath Stated Complaint: Shortness of Breath Time Seen by Provider: 03/18/19 17:43 History Source: Patient Exam Limitations: No Limitations - History of Present Illness Initial Comments: 03/18/19 18:31 58yF w PMHx NIDDM, HLD, current smoker, PAD (on Plavix) presenting w dyspnea. Dyspnea worse lying down persistent for last 6d. Associateed nausea, no vomiting. 6d ago seen in ED for cough, SOB dx with viral URI, flu neg, sent home w albuterol and benzonatate. Denies fever/chills, cough, nasal congestion, sore throat, chest pain/tightness, AB/BLE swelling, urinary/bowel mvmt changes. Past History - Past Medical History Allergies/Adverse Reactions: Allergies Allergy/AdvReac Type Severity Reaction Status Date / Time Penicillins Allergy Severe Hives Verified 03/18/19 17:47 Home Medications: Ambulatory Orders Sitagliptin Phos/Metformin HCl [Janumet 50-500 mg Tablet] 1 tab PO BID 06/23/14 Dapagliflozin Propanediol [Farxiga] 1 tab PO DAILY 03/10/17 Multivitamin [Daily Multiple Vitamin] 1 tab PO DAILY 03/10/17 Rosuvastatin Calcium [Crestor] 1 tab PO DAILY 03/10/17 Aspirin [Ecotrin] 81 mg PO DAILY 05/02/17 Zolpidem Tartrate [Ambien] 5 mg PO HS PRN 05/02/17 Clopidogrel Bisulfate [Plavix] 75 mg PO DAILY #30 tablet 05/04/17 Albuterol Sulfate Inhaler - [Ventolin HFA Inhaler -] 1 - 2 inh PO Q4H #1 inhaler 03/12/19 Benzonatate [Tessalon Perle -] 100 mg PO TID #21 capsule 03/12/19 Anemia: No Asthma: No Cancer: No Cardiac Disorders: No CVA: No COPD: No CHF: No DVT: No Dementia: No Diabetes: Yes (NIDM) GI Disorders: No Disorders: No HTN: No Hypercholesterolemia: Yes Liver Disease: No Seizures: No Thyroid Disease: No - Surgical History Abdominal Surgery: No Appendectomy: No Cardiac Surgery: No Cholecystectomy: No Lung Surgery: No Orthopedic Surgery: No - Reproductive History Cervical CA: No Dysfunctional Uterine Bleeding: No Ectopic : No Endometrial CA: No Polycystic Ovaries: No Tubal Ligation: No - Immunization History Immunization Up to Date: Yes - Psycho Social/Smoking Cessation Hx Smoking Status: Yes Smoking History: Never smoked Have you smoked in the past 12 months: Yes Number of Cigarettes Smoked Daily: 5 'Breaking Loose' booklet given: 05/02/17 Hx Alcohol Use: No Drug/Substance Use Hx: No Substance Use Type: None Hx Substance Use Treatment: No Review of Systems - Review of Systems Constitutional: No: Chills, Fever HEENTM: No: Eye Pain, Nose Pain, Nose Congestion, Throat Pain Respiratory: Yes: Shortness of Breath. No: Cough, Wheezing, Productive cough Cardiac (ROS): No: Chest Pain, Palpitations, Syncope ABD/GI: No: Abdominal Distended, Constipated, Diarrhea, Nausea, Vomiting : No: Burning, Dysuria, Hematuria Musculoskeletal: No: Back Pain, Joint Pain Integumentary: No: Bruising, Flushing, Lesions Neurological: No: Headache, Seizure, Tingling Psychiatric: No: Anxiety, Depression, Stressors Endocrine: No: Excessive Sweating, Flushing, Intolerance to Cold, Intolerance to Heat Hematologic/Lymphatic: No: Anemia, Blood Clots *Physical Exam - Vital Signs Last Vital Signs Temp Pulse Resp BP Pulse Ox 98.1 F 100 H 18 168/66 99 03/18/19 17:43 03/18/19 17:43 03/18/19 17:43 03/18/19 17:43 03/18/19 17:43 - Physical Exam General Appearance: Yes: Nourished, Appropriately Dressed. No: Apparent Distress HEENT: positive: EOMI, ARISTIDES, Normal Voice, Hearing Grossly Normal. negative: Scleral Icterus (R), Scleral Icterus (L), Nasal Congestion, Rhinorrhea Respiratory/Chest: positive: Lungs Clear, Decreased Breath Sounds (leidy bases R>L ). negative: Chest Tender, Accessory Muscle Use, Labored Respiration, Crackles , Rales, Rhonchi, Stridor, Wheezing Cardiovascular: positive: Regular Rhythm, Regular Rate, S1, S2. negative: Edema , Murmur Gastrointestinal/Abdominal: positive: Flat, Soft. 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 negative: Sensory Deficit, Confused, Disoriented Heart Score/ECG Review - History History: Slightly suspicious - Electrocardiogram EKG: Normal - Age Age: 45-65 - Risk Factors Risk Factors Heart Score: Yes Hx Hypercholesterolemia, No Hx Hypertension, Yes Hx Diabetes, Yes Smoking History, No Positive family hx of cardiac disease, No Hx Obesity Based on the list above the patient has:: >/=3 risk factors or Hx atherosclerotic disease - Troponin Troponin: </= normal limit - Score Heart Score - Total: 3 ED Treatment Course - LABORATORY CBC & Chemistry Diagram: 03/18/19 19:29 03/18/19 19:14 Medical Decision Making - Medical Decision Making 03/18/19 19:08 EKG NSR, HR 80, Qtc 463, no ST changes CXR clear lung cesar, normal cardiac size Renal US shows 3cm simple L renal cyst --- 58yF w PMHx NIDDM, HLD, current smoker, PAD (on Plavix) presenting w 6d dyspnea and nausea d/t COPD exacerbation (smoker) Low concern for ACS (neg trop, NSR EKG) vs PNA (clear lungs CXR). US showed 3cm L simple renal cyst, no pericardial effusions seen. Given duonebx2, prednisone, zofran DC w prednisone, zofran prescriptions Discharge - Discharge Information Problems reviewed: Yes Clinical Impression/Diagnosis: COPD exacerbation Condition: Improved Disposition: HOME - Admission No - Follow up/Referral Referrals: Kendell Garcia MD [Primary Care Provider] - - Patient Discharge Instructions Patient Printed Discharge Instructions: DI for Chronic Obstructive Pulmonary Disease Additional Instructions: You were seen for trouble breathing and nausea. Your workup did not show anything concerning. You likely have COPD due to smoking Please follow up with your primary care doctor regarding your visit Take the prescribed zofran if you're nauseous and prednisone as directed for the next 5 days. Use the inhaler if you have trouble breathing Come back to the ED if you have chest pain, lose consciousness, or cannot breathe. - Post Discharge Activity
[2019-03-18] MEDS ORDERED: ALBUTEROL SO4 2.5/IPRATROPIUM 0.5 INH SOL 3 ML VIAL.NEB. NEB ONE ×4 (18:53→21:00)
[2019-03-18] MEDS ORDERED: ONDANSETRON *ODT* 4 MG TABLET SL ONE (19:02)
[2019-03-18] MEDS ORDERED: ONDANSETRON *ODT* 4 MG TABLET ONE (19:18)
[2019-03-18 19:58] LABS: BASO % 0.5 % (0-2.0); EOS % 0.4 % (0-4.5); HEMATOCRIT 40.1 % (32.4-45.2); HEMOGLOBIN 13.4 GM/dL (10.7-15.3); LYMPH % 33.3 % (8-40); MCH 30.9 pg (25.7-33.7); MCHC 33.4 g/dl (32.0-36.0); MEAN CELL VOLUME 92.6 fl (80-96); MEAN PLT VOLUME 10.5 fl (7.5-11.1); MONO % 6.6 % (3.8-10.2); NEUT % 59.2 % (42.8-82.8); PLATELET COUNT 201 K/MM3 (134-434); RBC 4.33 M/mm3 (3.60-5.2); RDW 13.2 % (11.6-15.6)
[2019-03-18 20:22] LABS: BLOOD UREA NITROGEN 11.4 mg/dL (7-18); CALCIUM 8.9 mg/dL (8.5-10.1); CREATININE 0.8 mg/dL (0.55-1.3); N-TERMINAL BNP 35.1 pg/ml (5-125)
[2019-03-18] MEDS ORDERED: predniSONE 20 MG TABLET (UD) PO ONE (20:56)
--- NOTE | 2019-03-18 20:56 | PDOC ---
Documentation entered by Cinthya Azul SCRIBE, acting as scribe for Angelina Sun MD. Angelina Sun MD: This documentation has been prepared by the Latha rojo Nirvannie, SCRIBE, under my direction and personally reviewed by me in its entirety. I confirm that the documentation accurately reflects all work, treatment, procedures, and medical decision making performed by me. Attending Attestation - Resident Resident Name: Melecio Stacy - ED Attending Attestation I have performed the following: I have examined & evaluated the patient, The case was reviewed & discussed with the resident, I agree w/resident's findings & plan, Exceptions are as noted - HPI HPI: 03/18/19 19:35 The patient is a year old female, with a significant past medical history of NIDDM and PAD (on Plavix) , who presents to the emergency department with 6 days of dyspnea and orthopnea with associated nausea. As per patient and EMR, she was recently evaluated in [facility] on 03/12 and diagnosed with a URI. She denies recent fevers, chills,dysuria, frequency, urgency or hematuria. Allergies: Penicillins Social history: Smoker Primary Care Physician: Dr. Garcia - Physicial Exam PE: 03/18/19 20:47 awake alert distant breath sounds. no wheeze no crackles. decreased breath sounds on right. heart rrr no mrg abd soft nt nd ext wwp no edema no calf tenderness. skin warm and dry. 03/18/19 20:56 - Medical Decision Making 03/18/19 20:47 58 yo F h/o PAD, copd, smoker here with cough, recently evaluated 6 days ago for bronchitis given rx for inhaler and cough suppressant. here today because of nausea. no vomiting no fever. no chills. no rash. no edema. no other complaints. cough non productive of phlegm. pt stats she is still a smoker but stopped with her uri sxs. no h/o pe or dvt. no other complaints 03/18/19 20:55 pt exam wih distant lung sounds heart and lung us. bilat lungs wiht a line predominant no b lines. no plueral effusions. heart good contractility. no pericardial effusion. incidentally noted cyst right renal when looking at lungs bases. will order renal us. Heart Score/ECG Review #1 General ECG Interpretation: Sinus Rhythm, Normal Rate (80), Normal Intervals, No acute ischemic changes
[2019-03-18] MEDS ORDERED: predniSONE 20 MG TABLET (UD) ONE (21:00)
[2019-03-18 23:06] VITALS: BP 132/74; PULSE 86
--- NOTE | 2019-03-19 10:26 | EKG ---
Test Reason : Blood Pressure : / mmHG Vent. Rate : 080 BPM Atrial Rate : 080 BPM P-R Int : 164 ms QRS Dur : 092 ms QT Int : 402 ms P-R-T Axes : 070 051 054 degrees QTc Int : 463 ms NORMAL SINUS RHYTHM NORMAL ECG WHEN COMPARED WITH ECG OF 16-OCT-2016 17:37, NO SIGNIFICANT CHANGE WAS FOUND Confirmed by MD Edgar, Bill ([id number]) on 03/19/2019 10:26:26 AM Referred By: Confirmed By:Bill Hernández MD
== END 2019-03-18 22:50 | disposition home or self-care (01) ==
LOC: JER 17:38
PROC: 3E0F7GC Introduction of Other Therapeutic Substance into Respiratory Tract, Via Natural or Artificial Opening (ICD-10-PCS; principal; 2019-03-18)
PROC: 3E0F7GC Introduction of Other Therapeutic Substance into Respiratory Tract, Via Natural or Artificial Opening (ICD-10-PCS; 2019-03-18)
DX: J44.1 Chronic obstructive pulmonary disease with (acute) exacerbation (principal); E11.9 Type 2 diabetes mellitus without complications; Z79.84 Long term (current) use of oral hypoglycemic drugs; E78.5 Hyperlipidemia, unspecified; I73.89 Other specified peripheral vascular diseases; Z79.02 Long term (current) use of antithrombotics/antiplatelets; F17.210 Nicotine dependence, cigarettes, uncomplicated; Z88.0 Allergy status to penicillin
CPT/HCPCS: 36415; 71046-TC-FY; 76604; 76775-TC; 80048; 83880; 84484; 85025; 93005; 93010; 93308; 99283-25; Q0162

== ENCOUNTER 2022-08-21 15:52 | Emergency (ER) | payer OTHER ==
[2022-08-21 16:14] VITALS: BP 116/71; PULSE 97; RESP 18; TEMP 98.1; BMI 23.0
[2022-08-21] MEDS ORDERED: METOCLOPRAMIDE HCL INJECTION 10 MG/2 ML VIAL IVPB ONE (18:05)
[2022-08-21] MEDS ORDERED: ACETAMINOPHEN 1000 MG/100 ML BAG IVPB ONE (18:05)
[2022-08-21] MEDS ORDERED: METOCLOPRAMIDE HCL INJECTION 10 MG/2 ML VIAL ONE (18:38)
[2022-08-21] MEDS ORDERED: ACETAMINOPHEN INJECTION 100 ML IVPB ONE (18:39)
[2022-08-21] MEDS ORDERED: SODIUM CHLORIDE 0.9% 500 ML INFUS.BAG IV ONE (19:03)
== END 2022-08-21 20:05 | disposition home or self-care (01) ==
LOC: JER 15:52
PROC: 3E033NZ Introduction of Analgesics, Hypnotics, Sedatives into Peripheral Vein, Percutaneous Approach (ICD-10-PCS; principal; 2022-08-21)
PROC: 3E033GC Introduction of Other Therapeutic Substance into Peripheral Vein, Percutaneous Approach (ICD-10-PCS; 2022-08-21)
DX: R51.9 Headache, unspecified (principal)
CPT/HCPCS: 70450-TC; 99284-25

== ENCOUNTER 2023-05-20 15:16 | Emergency (ER) | payer OTHER ==
[2023-05-20 15:24] VITALS: BP 126/67; PULSE 87; RESP 16; TEMP 98.5; BMI 23.6
== END 2023-05-20 16:31 | disposition home or self-care (01) ==
LOC: JER 15:16 → JERFT 15:16
DX: M54.50 Low back pain, unspecified (principal); M99.04 Segmental and somatic dysfunction of sacral region
CPT/HCPCS: 99282-25

== ENCOUNTER 2023-06-21 18:49 | Emergency (ER) | payer OTHER ==
[2023-06-21 18:55] VITALS: BP 136/67; PULSE 90; RESP 18; TEMP 98.1; BMI 21.9
== END 2023-06-21 21:02 | disposition home or self-care (01) ==
LOC: JERFT 18:49
DX: M79.621 Pain in right upper arm (principal); S40.021A Contusion of right upper arm, initial encounter; X58.XXXA Exposure to other specified factors, initial encounter
CPT/HCPCS: 76882-TC-RT-FY; 93971; 99284-25

== ENCOUNTER 2023-12-20 19:43 | Emergency (ER) | payer OTHER ==
[2023-12-20 19:53] VITALS: BP 113/72; PULSE 86; RESP 18; TEMP 98.6; BMI 21.2
[2023-12-20 21:51] LABS: BASO % 0.9 % (0-2.0); EOS % 1.2 % (0-4.5); HEMATOCRIT 40.2 % (32.4-45.2); HEMOGLOBIN 13.6 GM/dL (10.7-15.3); LYMPH % 37.6 % (8-40); MCH 31.5 pg (25.7-33.7); MCHC 33.8 g/dl (32.0-36.0); MEAN CELL VOLUME 93.2 fl (80-96); MEAN PLT VOLUME 10.3 fl (7.5-11.1); MONO % 5.6 % (3.8-10.2); NEUT % 54.7 % (42.8-82.8); PLATELET COUNT 232 10^3/uL (134-434); RBC 4.31 M/mm3 (3.60-5.2); RDW 13.5 % (11.6-15.6); WHITE BLOOD COUNT 8.7 K/mm3 (4.0-10.0)
[2023-12-20 21:58] LABS: POTASSIUM 4.1 mmol/L (3.5-5.1)
[2023-12-20 22:00] LABS: ALBUMIN 3.9 g/dl (3.4-5.0); BLOOD UREA NITROGEN 18.4 mg/dL (7-18); CALCIUM 9.4 mg/dL (8.5-10.1)
[2023-12-20 22:04] LABS: CREATININE 0.7 mg/dL (0.55-1.3)
[2023-12-20 22:05] LABS: BILIRUBIN,TOTAL 0.2 mg/dL (0.2-1); TOT PROT 6.7 g/dl (6.4-8.2)
== END 2023-12-20 23:10 | disposition home or self-care (01) ==
LOC: JER 19:43
DX: R07.89 Other chest pain (principal)
CPT/HCPCS: 36415; 71046-TC-FY; 80053; 84484; 85025; 93005; 93010; 99285-25